=== PATIENT | female | born 1990 | race Caucasian/White ===

== ENCOUNTER 2020-04-26 13:58 | Emergency (ER) | payer OTHER, SELFPAY ==
--- NOTE | 2020-04-26 14:09 | ED.GENADULT ---
HPI - General Adult General Chief complaint: Eye Problems Stated complaint: left eye fb Time Seen by Provider: 04/26/20 14:09 Source: patient Mode of arrival: ambulatory Limitations: no limitations History of Present Illness HPI narrative: 29-year-old female patient presents to the [facility] with complaints of possible foreign body in the left eye. Patient states that she was out moving wood today and states that the wind blew and felt like some type of sawdust or something got into her eye. Patient states that she tried to rinse it out with some eyewash at home. Patient states that she is having pain to the eye but denies any vision changes. Patient denies wearing contacts. Patient denies any fevers, body aches or chills. Related Data Allergies Allergy/AdvReac Type Severity Reaction Status Date / Time codeine Allergy Rash Verified 04/26/20 14:39 Penicillins Allergy Rash Verified 04/26/20 14:39 stomach med AdvReac Other Uncoded 04/26/20 14:40 Review of Systems Review of Systems: Narrative: CONSTITUTIONAL: Denies fever, chills, or sweats. EYES: Denies visual changes, redness, or discharge. Positive pain left eye ENT: Denies rhinorrhea, congestion, sore throat, or otalgia. CARDIOVASCULAR: Denies chest pain, palpitations, or edema. RESPIRATORY: Denies cough or dyspnea. GASTROINTESTINAL: Denies abdominal pain, nausea, vomiting, or diarrhea. GENITOURINARY: Denies dysuria or hematuria. SKIN: Denies rash or itching. MUSCULOSKELETAL: Denies back pain, joint pain, or myalgia. NEUROLOGIC: Denies headache, numbness, or weakness. PSYCHIATRIC: Denies anxiety or depression. PMFSH Comments At the time of my signature I agree with nursing past medical history, surgical, social, and family history. There is no relevant family history pertinent to the presenting complaint. Exam Narrative: Exam Narrative: GENERAL: Well-appearing, well-nourished, and in no acute distress. HEAD: Normocephalic, atraumatic. EYES: PERRLA and EOM intact without limitation or complaint of pain, no periorbital soft tissue swelling ,no erythema, warmth or tenderness noted, no obvious deformity. No crusting or swelling.no tearing or draining.No photophobia. No nystagmus No FB or lesion on lid eversion. Corneas grossly clear, no obvious FB or hyphens/hypopyon. No injection to sclera. Lids and lashes clear. Small subconjunctival hemorrhage noted to the 10:00 area of the eye on the sclera. No obvious corneal abrasion noted under the Velasquez lamp. ENT: Nares clear, no rhinorrhea or epistaxis. Mucous membranes moist. NECK: Supple. No lymphadenopathy CHEST: Clear to auscultation. No respiratory distress. HEART: Regular rate and rhythm. No murmur heard. Normal peripheral pulses. ABDOMEN: Soft, nontender, nondistended, normal active bowel sounds. EXTREMITIES: Normal range of motion. No edema. SKIN: Warm, dry, no rash. NEURO: No focal deficits. Alert and oriented x3. Course Vital Signs Vital signs: Vital Signs Temperature 37.1 C 04/26/20 14:20 Pulse Rate 88 04/26/20 14:20 Respiratory Rate 18 04/26/20 14:20 Blood Pressure 112/79 04/26/20 14:20 Pulse Oximetry 100 04/26/20 14:20 Temperature 37.1 C 04/26/20 14:20 Pulse Rate 88 04/26/20 14:20 Respiratory Rate 18 04/26/20 14:20 Blood Pressure 112/79 04/26/20 14:20 Pulse Oximetry 100 04/26/20 14:20 Vital signs reviewed. Medical Decision Making Differential Diagnosis Differential Diagnosis: Differential diagnosis: Conjunctivitis, foreign body, corneal ulcer, Keratitis, dendritic lesions, corneal abrasion, very orbital infection, orbital cellulitis, orbital pain, acute narrow angle glaucoma, detached retina, central retinal artery occlusion, complete hyphema, vitreous hemorrhage, optic neuritis, globe disruption As per patient it does appear that she has possibly a little subconjunctival hemorrhage noted to the left eye from the trauma. Discussed with patient I am going to go ahead and
[2020-04-26 14:20] VITALS: BP 112/79; PULSE 88; RESP 18; TEMP 37.1; O2SAT 100
== END 2020-04-26 14:45 | disposition home or self-care (01) ==
PROVIDERS: Emergency Provider Nurse Practitioner Family
DX: H11.32 Conjunctival hemorrhage, left eye (principal)
CPT/HCPCS: 99213; A9270; G0463

== ENCOUNTER 2021-08-23 08:54 | Outpatient (CLI) | payer OTHER, SELFPAY | END 2021-08-23 08:55 | disposition home or self-care (01) | LOC: ANHBWCAUD 08:55 | DX: H90.3 Sensorineural hearing loss, bilateral (principal) | CPT/HCPCS: 92557; 92567 ==